=== PATIENT | male | born 1950 | race Caucasian/White ===

== ENCOUNTER 2022-07-12 05:42 | Day surgery (SDC) | payer OTHER ==
[2022-07-05 16:33] LABS: BASOPHILS % (AUTO) 0.2 % (0-1); EOSINOPHILS # (AUTO) 0.1 X10'3 (0-0.9); LYMPHOCYTES # (AUTO) 1.7 X10'3 (1.1-4.8); LYMPHOCYTES % (AUTO) 21.8 % (21-51); MEAN CORPUSCULAR HEMOGLOBIN 31.5 PG (27.0-31.0); MEAN CORPUSCULAR HGB CONC 33.7 g/dL (33.0-36.5); MEAN CORPUSCULAR VOLUME 93.6 FL (78-98); MEAN PLATELET VOLUME 8.5 FL (7.4-10.4); MONOCYTES # (AUTO) 0.5 X10'3 (0-0.9); MONOCYTES % (AUTO) 6.1 % (2-12); NEUTROPHILS # (AUTO) 5.6 X10'3 (1.8-7.7); NEUTROPHILS % (AUTO) 70.9 % (42-75); PRE OP HEMATOCRIT 45.9 % (42.0-52.0); PRE OP HEMOGLOBIN 15.5 g/dL (14.0-17.9); PRE OP PLATELET COUNT 174 X10'3 (140-440); RED BLOOD COUNT 4.91 X10'6 (4.70-6.10); RED CELL DISTRIBUTION WIDTH 14.4 % (11.5-14.5)
[2022-07-05 16:52] LABS: ALBUMIN/GLOBULIN RATIO 1.1 (1.1-1.5); ALKALINE PHOSPHATASE 69 IU/L (46-116); BLOOD UREA NITROGEN 27 MG/DL (7-18); CALCIUM 9.5 MG/DL (8.5-10.1); CHLORIDE 104 MMOL/L (99-107); CREATININE 1.04 MG/DL (0.60-1.10); PRE OP ALT 29 U/L (30-65); PRE OP ANION GAP 11 (8-16); PRE OP AST 18 U/L (10-37); PRE OP BILIRUB, TOTAL 0.5 MG/DL (0.0-1.0); PRE OP GLUCOSE 107 MG/DL (70-104); PRE OP POTASSIUM 4.7 MMOL/L (3.4-5.1); PRE OP SODIUM 139 MMOL/L (135-145); TOTAL CARBON DIOXIDE 24.2 MMOL/L (24-32); TOTAL PROTEIN 7.6 G/DL (6.4-8.2); eGFR 70 ML/MIN
[2022-07-12] VITALS (19 sets, daily range): BP systolic 95–168; BP diastolic 55–81
[~2022-07-12] VITALS: Ht 175.3 cm; Wt 98.0 kg
[~2022-07-12 05:42] MED LIST: ACET325T64 PO; CELE-193 PO; CHOL50004 PO; CYAN-51 PO; IBUP-2697 PO; LISI20TA28 PO; LORA10TA7 PO; acetaminophen 325mg tablet PO ONE; ceFAZolin inj. 2,000 MG in dextrose 5%-water 100 ML IV ONE; celeCOXIB 100mg capsule PO ONE; famotidine 20mg tablet PO ONE; gabapentin 300mg capsule PO ONE; metoclopramide 5 mg/ml inj IV ONE; oxyCODONE SR 10mg (sust. release) tab -2 tabs (20mg) PO ONE; ringers solution, lacted 1,000 ML IV SCH; tranexamic acid inj. 1,000 MG in normal saline IV soln 100ML IV ONE; vancomycin 1,500 MG in NS 300ml IV soln IV ONE
--- NOTE | 2022-07-12 06:00 | NUR ---
PULSE FOUND W/ DOPPLER MARKED W/ SKIN MARKER PEDAL PULSE RIGHT FOOT. PT SHOWERED X 5 PER PROTOCOL AND READ TOTAL JOINT BOOKLET. NO OINTMENT ,, AWARE.
[2022-07-12] MEDS ORDERED: LIDOcaine 1% (10mg/ml) 2ml vial ONE (06:01)
[2022-07-12] MEDS ORDERED: ROPIVAcaine inj 250 MG, CloNIDine/PF inj 80 MCG, epiNEPHrine inj 0.5 MG in normal salin... IV ONE (07:00)
[2022-07-12] MEDS ORDERED: HYDROmorphone inj. 0.5 MG/0.5 ML DISP.SYRIN IV PRN (07:10)
[2022-07-12] MEDS ORDERED: bisacodyl 10mg suppository rectal RC PRN (07:10)
[2022-07-12] MEDS ORDERED: ondansetron/PF 4mg/2ml inj IV PRN ×2 (07:10→10:15)
[2022-07-12] MEDS ORDERED: magnesium hydroxide 30ml (MOM) UD suspension PO PRN (07:10)
[2022-07-12] MEDS ORDERED: diphenhydrAMINE 25mg capsule PO PRN ×2 (07:10)
[2022-07-12] MEDS ORDERED: naloxone 0.4 mg/ml inj IV PRN (07:10)
[2022-07-12] MEDS ORDERED: acetaminophen 325mg tablet PO PRN (07:10)
[2022-07-12] MEDS ORDERED: HYDROcodone/acetaminophen 10/325mg tab PO PRN ×2 (07:10)
[2022-07-12] MEDS ORDERED: HYDROmorphone 1 mg/ml syringe IV PRN (07:10)
[2022-07-12] MEDS ORDERED: lisinopril 20mg tablet PO SCH (08:00)
[2022-07-12] MEDS ORDERED: loratadine 10mg tablet PO SCH ×2 (08:00→20:00)
[2022-07-12] MEDS ORDERED: fentaNYL/PF 50MCG/1 ML 2ML syringe ONE (08:30)
[2022-07-12] MEDS ORDERED: MIDAZolam 1 MG/ML 5ML VIAL ONE (08:31)
[2022-07-12] MEDS ORDERED: vancomycin 1,000mg inj ONE (09:04)
[2022-07-12] MEDS ORDERED: diphenhydrAMINE 50 mg/ml inj ONE (09:25)
[2022-07-12] MEDS ORDERED: propofol inj 20 ML IV ONE (09:25)
[2022-07-12] MEDS ORDERED: LIDOcaine 1%/PF 5ML 10 MG/ML VIAL ONE (09:25)
[2022-07-12] MEDS ORDERED: glycopyrrolate 0.2mg/ml inj ONE (09:25)
--- NOTE | 2022-07-12 09:54 | NUR ---
Received from OR via , accompanied by Anesthesiologist ALEXANDER AND OR NURSE and report given by Anesthesiolgist. PT IS DROWSY YET ABLE TO RESPOND TO VERBAL STIMULI. RT HIP LETY DRESSING IN PLACE; CDI. IMMOBILIZER TO RT LEG. 20G TO RT WRIST. VSS Addendum: 07/12/22 at 1024 by Yaquelin Reddy RN Amended: Links added.
[2022-07-12] MEDS ORDERED: morphine 4 MG/ML inj SYRINge IV PRN (10:15)
[2022-07-12] MEDS ORDERED: morphine 2 MG/ML inj. syringe IV PRN (10:15)
[2022-07-12] MEDS ORDERED: HYDROmorphone/PF 0.2 MG/ML SYRINGE IV PRN ×2 (10:15)
[2022-07-12] MEDS ORDERED: ringers solution, lacted 1,000 ML IV SCH (10:15)
--- NOTE | 2022-07-12 11:14 | NUR ---
PATIENT TAKEN TO SURGICAL FLOOR ROOM 360A WITH ALL BELONGINGS AND HOOKED UP TO ALL MONITORS IN ROOM AND REPORT GIVEN TO RN WHO HAS TAKEN OVER PATIENT CARE. Addendum: 07/12/22 at 1130 by Yaquelin Reddy RN Amended: Links added.
[2022-07-12] MEDS ORDERED: potassium cl 20mEq in 1/2 NS 1,000 ML IV SCH (13:00)
[2022-07-12] MEDS ORDERED: tranexamic acid inj. 1,000 MG in normal saline 100ml IV soln 90 ML IV ONE (14:00)
--- NOTE | 2022-07-12 17:55 | NUR ---
PATIENT STABLE AND APPROPRIATE FOR DISCHARGE, IV REMOVED, EDUCATION GIVEN, FOLLOW UP AND NEW MEDS PREARRANGED BEFORE SURGERY, PATIENT TAKEN TO LOBBY BY WHEELCHAIR TO AN AWAITING CAR WHERE TARIK TAKE PATIENT HOME
[2022-07-12] MEDS ORDERED: VANCOMYCIN 1,500MG inj. 1,500 MG in normal saline 500ml IV soln 300 ML IV SCH (20:00)
[2022-07-12] MEDS ORDERED: ascorbic acid 500mg tablet PO SCH (20:00)
[2022-07-12] MEDS ORDERED: sennosides 8.6mg tablet PO SCH (21:00)
[2022-07-12] MEDS ORDERED: gabapentin 300mg capsule PO SCH (21:00)
[2022-07-13] MEDS ORDERED: multivitamins, therapeutics tablet PO SCH (08:00)
[2022-07-13] MEDS ORDERED: lisinopril 20mg tablet PO SCH (08:00)
[2022-07-13] MEDS ORDERED: aspirin 325mg tablet PO SCH (08:30)
--- NOTE | 2022-07-13 10:38 | NUR ---
Joint surgery consult: Pt s/p R hip surgery discharged prior to RD visit per EMR. Written high protein diet ed w/ RD contact information mailed to pt home address provided in EMR. Addendum: 07/13/22 at [address] Amended: Links added.
[2022-07-13] MEDS ORDERED: celeCOXIB 100mg capsule PO SCH (20:00)
== END 2022-07-12 17:58 | disposition home or self-care (01) ==
LOC: PAS 05:42 → SUR 3N 07:09 → PAS 17:58
PROVIDERS: ATTEND Orthopaedic Surgery
DX: M16.11 Unilateral primary osteoarthritis, right hip (principal); I10 Essential (primary) hypertension; M13.88 Other specified arthritis, other site; Z79.82 Long term (current) use of aspirin; Z79.899 Other long term (current) drug therapy; Z87.891 Personal history of nicotine dependence; Z98.890 Other specified postprocedural states; Z85.46 Personal history of malignant neoplasm of prostate; Z90.79 Acquired absence of other genital organ(s); Z80.9 Family history of malignant neoplasm, unspecified
CPT/HCPCS: 27130; 36415; 72170; 80053; 82948; 85025; 86885; 86900; 86901; 87081; 97110; 97116; 97161; C1776; J0690; J1200; J2250; J2704; J2765; J3010; J3370; J3490; J7030; J7040; J7060; J7120; Z7506; Z7508; Z7512; 97530; A7000; G0378